=== PATIENT | female | born 1930 | race Caucasian/White ===

== ENCOUNTER 2021-03-27 05:58 | Inpatient (IN) | payer MEDICARE, SELFPAY ==
[2021-03-27 06:45] LABS: Hemoglobin 7.6 g/dL (12.0-16.0); Mean Corpuscular HGB CONC 29.6 g/dL (32.0-36.0); Mean Corpuscular Hemoglobin 25.3 pg (27.0-31.0); Mean Corpuscular Volume 85.4 fL (78.0-98.0); Mean Platelet Volume 8.1 fL (7.4-10.4); Platelet Count 356 thou/uL (130-400); Red Blood Cell (RBC) Count 3.01 mill/uL (4.20-5.40); White Blood Cell (WBC) Count 14.4 thou/uL (4.8-10.8)
[2021-03-27 07:01] LABS: ALT (SGPT) 10 U/L (8-55); AST (SGOT) 12 U/L (5-34); Albumin 3.5 g/dL (3.4-4.8); Alkaline Phosphatase 81 U/L (40-110); Anion Gap 12 mmol/L (10-20); BUN (Urea Nitrogen) 18 mg/dL (9.8-20.1); Bilirubin, Total 0.7 mg/dL (0.2-1.2); Calc. Creatinine Clearance 0 mL/min (70-130); Calcium 9.9 mg/dL (7.8-10.44); Carbon Dioxide 26 mmol/L (23-31); Chloride 102 mmol/L (98-107); Globulin 4.2 g/dL (2.4-3.5); Glucose 111 mg/dL (83-110); Potassium 3.9 mmol/L (3.5-5.1); Protein, Total 7.7 g/dL (5.8-8.1); Sodium 136 mmol/L (136-145)
[2021-03-27 07:38] LABS: #Lymphocytes 1.5 thou/uL (1.20-3.40); #Monocytes 1.4 thou/uL (0.11-0.59); #Neutrophils 11.5 thou/uL (1.40-6.50); %Basophils 0.3 % (0.0-1.0); %Eosinophils 0.3 % (0.0-10.0); %Lymphocytes 10.2 % (21.0-51.0); %Monocytes 9.3 % (0.0-10.0); %Neutrophils 79.9 % (42.0-75.0); Band 13 % (5-11); Eosinophils 1 % (0-10); Hypochromia SLIGHT = 6-15 cells (100X) (0-5/hpf); Lymphocytes 15 % (21-51); MDiff Complete? YES; Monocytes 8 % (0-10); Neutrophil 63 % (42-75); Platelet Morphology Comment Appears Adequate; Polychromasia SLIGHT = 2-3 cells (100X) (0-2/hpf)
[2021-03-27] MEDS ORDERED: cefTRIAXone\\ROCEPHIN 2 GM VIAL ONE (08:08)
[2021-03-27] MEDS ORDERED: Azithromycin 500 MG VIAL ONE (08:08)
[2021-03-27] MEDS ORDERED: Nitroglycerin 2% Ointment 1 INCH/1 GM Packet ONE (09:55)
[2021-03-27] MEDS ORDERED: Furosemide 40 MG/4 ML VIAL ONE ×2 (11:11→16:57)
[2021-03-27 11:19] LABS: Actual Bicarbonate (HCO3a) 27.8 mEq/L (22-28); Analyzer IN Cardio ER; Base Excess (BEa) -0.4 mEq/L (-2.0 to +3.0); Calcium, Ionized (arterial) 1.29 mmol/L (1.12-1.30); Carboxyhemoglobin (COHb) 1.2 gm% (0.0-3.0); O2 Tension (PaO2), arterial 86.2 mmHg (> 60.0); Potassium - ABG Lab 3.73 mmol/L (3.70-5.30)
[2021-03-27 11:21] LABS: CO2 Tension 69.6 mmHg (35.0-45.0); Puncture Site RBA; pH, Arterial 7.22 (7.35-7.45)
[2021-03-27] MEDS ORDERED: Acetaminophen 650 MG Suppository PR PRN (11:51)
[2021-03-27] MEDS ORDERED: Ondansetron PF 4 MG/2 ML Vial IVP PRN (11:51)
[2021-03-27] MEDS ORDERED: Ondansetron ODT 4 MG TAB PO PRN (11:51)
[2021-03-27] MEDS ORDERED: Labetalol HCl 100 MG/20 ML VIAL SLOW IVP PRN (12:38)
[2021-03-27 13:31] LABS: Troponin I 0.015 ng/mL (< 0.028)
[2021-03-27 13:42] LABS: Iron 15 ug/dL (50-170); Iron Binding Capacity, Total 280 mcg/dL (265-497)
[2021-03-27] MEDS ORDERED: Nitroglycerin 2% Ointment 1 INCH/1 GM Packet TOP SCH (14:00)
[2021-03-27 15:02] LABS: SARS-CoV-2 PCR by NAA Not Detected (NotDetected)
[2021-03-27 16:51] LABS: Analyzer IN Cardio ER; Base Excess (BEa) 3.6 mEq/L (-2.0 to +3.0); CO2 Tension 48.6 mmHg (35.0-45.0); Calcium, Ionized (arterial) 1.22 mmol/L (1.12-1.30); Carboxyhemoglobin (COHb) 1.2 gm% (0.0-3.0); Hemoglobin (Hb) 7.8 g/dL (12.0-16.0); O2 Tension (PaO2), arterial 119.5 mmHg (> 60.0); Potassium - ABG Lab 3.31 mmol/L (3.70-5.30); pH, Arterial 7.39 (7.35-7.45)
[2021-03-27 16:52] LABS: Puncture Site RRA
[2021-03-27] MEDS: Furosemide 40 MG/4 ML VIAL SLOW IVP SCH (16:57)
[2021-03-27 18:41] VITALS: BMI 23.5
[2021-03-27] MEDS: Apixaban 5 MG TAB PO SCH (21:04)
[2021-03-27] MEDS: Nitroglycerin 2% Ointment 1 INCH/1 GM Packet TOP SCH (21:04)
[2021-03-27] MEDS ORDERED: hydrALAZINE 20 MG/ML VIAL SLOW IVP PRN (21:45)
[2021-03-28] MEDS: Acetaminophen 325 MG TAB PO PRN ×3 (03:57→18:07)
[2021-03-28] MEDS: Furosemide 40 MG/4 ML VIAL SLOW IVP SCH ×2 (06:04→14:59)
[2021-03-28] MEDS: Nitroglycerin 2% Ointment 1 INCH/1 GM Packet TOP SCH ×2 (06:18→15:03)
[2021-03-28] MEDS: Apixaban 5 MG TAB PO SCH ×2 (08:27→19:58)
[2021-03-28 08:52] LABS: #Lymphocytes 1.5 thou/uL (1.20-3.40); #Monocytes 1.2 thou/uL (0.11-0.59); #Neutrophils 8.3 thou/uL (1.40-6.50); %Basophils 0.1 % (0.0-1.0); %Eosinophils 0.3 % (0.0-10.0); %Lymphocytes 13.6 % (21.0-51.0); %Monocytes 11.2 % (0.0-10.0); %Neutrophils 74.8 % (42.0-75.0); Hemoglobin 7.8 g/dL (12.0-16.0); Mean Corpuscular HGB CONC 29.2 g/dL (32.0-36.0); Mean Corpuscular Volume 85.7 fL (78.0-98.0); Mean Platelet Volume 8.4 fL (7.4-10.4); Platelet Count 364 thou/uL (130-400); RBC Distribution Width 18.7 % (11.5-14.5); Red Blood Cell (RBC) Count 3.13 mill/uL (4.20-5.40); White Blood Cell (WBC) Count 11.1 thou/uL (4.8-10.8)
[2021-03-28 09:06] LABS: Anion Gap 12 mmol/L (10-20); BUN (Urea Nitrogen) 16 mg/dL (9.8-20.1); Calc. Creatinine Clearance 43 mL/min (70-130); Calcium 10.1 mg/dL (7.8-10.44); Carbon Dioxide 35 mmol/L (23-31); Chloride 96 mmol/L (98-107); Glucose 130 mg/dL (83-110); Potassium 3.3 mmol/L (3.5-5.1); Sodium 140 mmol/L (136-145)
[2021-03-28 10:38] LABS: Hypochromia SLIGHT = 6-15 cells (100X) (0-5/hpf); MDiff Complete? YES; Platelet Morphology Comment Appears Adequate; Polychromasia SLIGHT = 2-3 cells (100X) (0-2/hpf)
[2021-03-28] MEDS ORDERED: Potassium Chloride 20 MEQ TAB PO SCH ×2 (18:30→20:00)
[2021-03-28] MEDS ORDERED: Electrolyte Replacement Protocol 1 EACH FS SCH (18:30)
[2021-03-28] MEDS: Cefepime 1 GM in Sodium Chloride 0.9% 100 ML IVPB SCH (19:55)
[2021-03-28] MEDS: Sotalol HCl 80 MG TAB PO SCH (19:56)
[2021-03-28] MEDS: Doxycycline 100 MG CAP PO SCH (19:56)
[2021-03-28] MEDS: guaiFENesin ER 600 MG TAB PO SCH (19:58)
[2021-03-28] MEDS: Montelukast Sodium 10 mg Tablet PO SCH (19:58)
[2021-03-28] MEDS ORDERED: Cyclobenzaprine 10 MG TAB PO SCH (22:15)
[2021-03-29 04:28] LABS: #Basophils 0.1 thou/uL (0.0-0.2); #Eosinphils 0.2 thou/uL (0.0-0.7); #Lymphocytes 1.1 thou/uL (1.20-3.40); #Monocytes 1.3 thou/uL (0.11-0.59); #Neutrophils 9.5 thou/uL (1.40-6.50); %Basophils 0.4 % (0.0-1.0); %Eosinophils 1.9 % (0.0-10.0); %Lymphocytes 9.2 % (21.0-51.0); %Monocytes 10.7 % (0.0-10.0); %Neutrophils 77.9 % (42.0-75.0); Hemoglobin 8.1 g/dL (12.0-16.0); Mean Corpuscular HGB CONC 30.2 g/dL (32.0-36.0); Mean Corpuscular Hemoglobin 26.4 pg (27.0-31.0); Mean Corpuscular Volume 87.6 fL (78.0-98.0); Mean Platelet Volume 8.6 fL (7.4-10.4); Platelet Count 323 thou/uL (130-400); RBC Distribution Width 18.5 % (11.5-14.5); Red Blood Cell (RBC) Count 3.08 mill/uL (4.20-5.40); White Blood Cell (WBC) Count 12.2 thou/uL (4.8-10.8)
[2021-03-29 04:30] LABS: Anion Gap 11 mmol/L (10-20); BUN (Urea Nitrogen) 16 mg/dL (9.8-20.1); Calc. Creatinine Clearance 47 mL/min (70-130); Calcium 9.9 mg/dL (7.8-10.44); Carbon Dioxide 33 mmol/L (23-31); Chloride 96 mmol/L (98-107); Glucose 117 mg/dL (83-110); Magnesium 1.8 mg/dL (1.6-2.6); Phosphorus 2.2 mg/dL (2.3-4.7); Potassium 3.7 mmol/L (3.5-5.1); Sodium 136 mmol/L (136-145)
[2021-03-29] MEDS: Cefepime 1 GM in Sodium Chloride 0.9% 100 ML IVPB SCH (05:57)
[2021-03-29] MEDS: Levothyroxine Sodium 100 MCG TAB PO SCH (05:58)
[2021-03-29] MEDS: Mometasone 100 MCG/PUFF (1 INHALER) INH SCH ×2 (06:53→18:48)
[2021-03-29] MEDS: Budesonide 0.5 MG/2 ML NEB NEB SCH ×2 (06:56→18:48)
[2021-03-29] MEDS ORDERED: Magnesium 2 GM/50 ML 2 GM in Premix Bag 1 BAG IVPB SCH (07:00)
[2021-03-29] MEDS: Sotalol HCl 80 MG TAB PO SCH ×2 (08:21→20:59)
[2021-03-29] MEDS: Potassium Chloride 10 MEQ TAB PO SCH ×2 (08:21→16:04)
[2021-03-29] MEDS: Apixaban 5 MG TAB PO SCH ×2 (08:21→20:58)
[2021-03-29] MEDS: Atorvastatin Calcium 40 MG TAB PO SCH (08:21)
[2021-03-29] MEDS: Saccharomyces boulardii 250 MG CAP PO SCH (08:21)
[2021-03-29] MEDS: Doxycycline 100 MG CAP PO SCH ×2 (08:21→20:58)
[2021-03-29] MEDS: guaiFENesin ER 600 MG TAB PO SCH ×2 (08:22→20:58)
[2021-03-29] MEDS: Furosemide 40 MG TAB PO SCH (08:42)
[2021-03-29] MEDS ORDERED: Non-Formulary Item 1 EACH (Fluticasone/Umeclidin/Vilanter [Trelegy Ellipta 100-62.5-25] 1 IH SCH (09:00)
[2021-03-29] MEDS ORDERED: Furosemide 40 MG/4 ML VIAL SLOW IVP SCH (09:00)
[2021-03-29] MEDS ORDERED: Potassium Phosphate 15 MMOL in Sodium Chloride 0.9% 250 ML 250 ML IVPB SCH (09:00)
[2021-03-29] MEDS: Acetaminophen 325 MG TAB PO PRN (17:06)
[2021-03-29] MEDS: Cefepime 2 GM in Sodium Chloride 0.9% 100 ML IVPB SCH (18:27)
[2021-03-29] MEDS: Montelukast Sodium 10 mg Tablet PO SCH (20:58)
[2021-03-30 05:05] LABS: #Eosinphils 0.4 thou/uL (0.0-0.7); #Lymphocytes 1.4 thou/uL (1.20-3.40); #Monocytes 1.1 thou/uL (0.11-0.59); #Neutrophils 7.1 thou/uL (1.40-6.50); %Basophils 0.1 % (0.0-1.0); %Eosinophils 3.7 % (0.0-10.0); %Lymphocytes 13.6 % (21.0-51.0); %Monocytes 11.2 % (0.0-10.0); %Neutrophils 71.5 % (42.0-75.0); Hemoglobin 6.9 g/dL (12.0-16.0); Mean Corpuscular HGB CONC 28.9 g/dL (32.0-36.0); Mean Corpuscular Hemoglobin 25.2 pg (27.0-31.0); Mean Corpuscular Volume 87.1 fL (78.0-98.0); Platelet Count 347 thou/uL (130-400); RBC Distribution Width 18.4 % (11.5-14.5); Red Blood Cell (RBC) Count 2.75 mill/uL (4.20-5.40); White Blood Cell (WBC) Count 9.9 thou/uL (4.8-10.8)
[2021-03-30 05:15] LABS: Anion Gap 10 mmol/L (10-20); BUN (Urea Nitrogen) 14 mg/dL (9.8-20.1); Calc. Creatinine Clearance 49 mL/min (70-130); Calcium 9.9 mg/dL (7.8-10.44); Carbon Dioxide 32 mmol/L (23-31); Chloride 100 mmol/L (98-107); Glucose 100 mg/dL (83-110); Magnesium 2.3 mg/dL (1.6-2.6); Potassium 3.8 mmol/L (3.5-5.1); Sodium 138 mmol/L (136-145)
[2021-03-30] MEDS: Levothyroxine Sodium 100 MCG TAB PO SCH (06:26)
[2021-03-30] MEDS: Cefepime 2 GM in Sodium Chloride 0.9% 100 ML IVPB SCH ×2 (06:26→18:11)
[2021-03-30] MEDS: Budesonide 0.5 MG/2 ML NEB NEB SCH ×2 (07:41→18:47)
[2021-03-30] MEDS: Mometasone 100 MCG/PUFF (1 INHALER) INH SCH ×2 (07:41→18:47)
[2021-03-30] MEDS: Acetaminophen 325 MG TAB PO PRN ×3 (07:52→21:54)
[2021-03-30] MEDS: Doxycycline 100 MG CAP PO SCH ×2 (08:02→21:55)
[2021-03-30] MEDS: Apixaban 5 MG TAB PO SCH ×2 (08:02→21:55)
[2021-03-30] MEDS: Potassium Chloride 10 MEQ TAB PO SCH ×2 (08:02→18:10)
[2021-03-30] MEDS: Sotalol HCl 80 MG TAB PO SCH ×2 (08:03→21:56)
[2021-03-30] MEDS: Furosemide 40 MG TAB PO SCH (08:03)
[2021-03-30] MEDS: Saccharomyces boulardii 250 MG CAP PO SCH (08:03)
[2021-03-30] MEDS: guaiFENesin ER 600 MG TAB PO SCH ×2 (08:03→21:55)
[2021-03-30] MEDS: Atorvastatin Calcium 40 MG TAB PO SCH (08:03)
[2021-03-30] MEDS: Diazepam 5 MG TAB PO PRN (08:03)
[2021-03-30] MEDS: Montelukast Sodium 10 mg Tablet PO SCH (21:56)
[2021-03-31] MEDS: Diazepam 5 MG TAB PO PRN ×2 (01:03→22:45)
[2021-03-31 05:10] LABS: #Eosinphils 0.3 thou/uL (0.0-0.7); #Lymphocytes 1.9 thou/uL (1.20-3.40); %Basophils 0.3 % (0.0-1.0); %Eosinophils 2.8 % (0.0-10.0); %Lymphocytes 18.7 % (21.0-51.0); %Neutrophils 68.1 % (42.0-75.0); Mean Corpuscular HGB CONC 30.9 g/dL (32.0-36.0); Mean Corpuscular Hemoglobin 26.6 pg (27.0-31.0); Mean Corpuscular Volume 86.2 fL (78.0-98.0); Mean Platelet Volume 8.2 fL (7.4-10.4); Platelet Count 344 thou/uL (130-400); RBC Distribution Width 17.2 % (11.5-14.5); Red Blood Cell (RBC) Count 3.37 mill/uL (4.20-5.40); White Blood Cell (WBC) Count 10.2 thou/uL (4.8-10.8)
[2021-03-31 05:31] LABS: Anion Gap 10 mmol/L (10-20); BUN (Urea Nitrogen) 13 mg/dL (9.8-20.1); Calc. Creatinine Clearance 51 mL/min (70-130); Carbon Dioxide 29 mmol/L (23-31); Chloride 101 mmol/L (98-107); Glucose 87 mg/dL (83-110); Potassium 4.1 mmol/L (3.5-5.1); Sodium 136 mmol/L (136-145)
[2021-03-31] MEDS: Acetaminophen 325 MG TAB PO PRN ×3 (05:50→13:57)
[2021-03-31] MEDS: Levothyroxine Sodium 100 MCG TAB PO SCH (05:50)
[2021-03-31] MEDS: Cefepime 2 GM in Sodium Chloride 0.9% 100 ML IVPB SCH ×2 (06:02→17:35)
[2021-03-31] MEDS: Budesonide 0.5 MG/2 ML NEB NEB SCH ×2 (07:33→18:19)
[2021-03-31] MEDS: Mometasone 100 MCG/PUFF (1 INHALER) INH SCH ×2 (07:34→18:42)
[2021-03-31] MEDS: Furosemide 40 MG TAB PO SCH (09:17)
[2021-03-31] MEDS: Doxycycline 100 MG CAP PO SCH ×2 (09:17→22:43)
[2021-03-31] MEDS: Potassium Chloride 10 MEQ TAB PO SCH ×2 (09:17→17:34)
[2021-03-31] MEDS: Sotalol HCl 80 MG TAB PO SCH ×2 (09:17→22:44)
[2021-03-31] MEDS: Apixaban 5 MG TAB PO SCH ×2 (09:17→22:43)
[2021-03-31] MEDS: Atorvastatin Calcium 40 MG TAB PO SCH (09:20)
[2021-03-31] MEDS: Saccharomyces boulardii 250 MG CAP PO SCH (09:20)
[2021-03-31] MEDS: guaiFENesin ER 600 MG TAB PO SCH ×2 (09:20→22:43)
[2021-03-31] MEDS: NIFEdipine XL 30 MG TAB PO SCH ×2 (09:28→22:44)
[2021-03-31 17:07] LABS: Bacteria/HPF 1+ HPF (None Seen); Bilirubin Negative (Negative); Blood, Urine Negative (Negative); Clarity Clear (Clear); Glucose, Urine (Dipstick) Normal (Negative); Ketone, Urine Trace mg/dL (Negative); Leukocyte Negative Leu/uL (Negative); Nitrite Negative (Negative); Protein, Urine (Dipstick) Negative (Neg-Trace); RBC/HPF 0-3 HPF (0-3); Specific Gravity, Urine 1.019 (1.002-1.036); Squamous Epithelial 0-3 HPF (0-3); Urobilinogen Normal mg/dL (Less than 2); WBC/HPF 0-3 HPF (0-3); pH, Urine 5.5 (5.0-9.0)
[2021-03-31 17:09] LABS: Urine Culture Reflex Yes Yes
[2021-03-31] MEDS: Montelukast Sodium 10 mg Tablet PO SCH (22:44)
[2021-04-01 05:13] LABS: #Eosinphils 0.2 thou/uL (0.0-0.7); #Lymphocytes 1.5 thou/uL (1.20-3.40); #Monocytes 0.9 thou/uL (0.11-0.59); #Neutrophils 9.4 thou/uL (1.40-6.50); %Eosinophils 1.6 % (0.0-10.0); %Lymphocytes 12.2 % (21.0-51.0); %Monocytes 7.6 % (0.0-10.0); %Neutrophils 78.6 % (42.0-75.0); Hemoglobin 8.7 g/dL (12.0-16.0); Mean Corpuscular HGB CONC 29.7 g/dL (32.0-36.0); Mean Corpuscular Hemoglobin 25.5 pg (27.0-31.0); Mean Corpuscular Volume 85.7 fL (78.0-98.0); Mean Platelet Volume 7.9 fL (7.4-10.4); Platelet Count 419 thou/uL (130-400); RBC Distribution Width 17.4 % (11.5-14.5); Red Blood Cell (RBC) Count 3.41 mill/uL (4.20-5.40)
[2021-04-01 05:28] LABS: Legionella Urinary Ag Negative (Negative); Strep pneumo Urine Ag NEGATIVE (NEGATIVE)
[2021-04-01 05:32] LABS: Anion Gap 10 mmol/L (10-20); BUN (Urea Nitrogen) 14 mg/dL (9.8-20.1); Calc. Creatinine Clearance 48 mL/min (70-130); Calcium 10.3 mg/dL (7.8-10.44); Carbon Dioxide 33 mmol/L (23-31); Chloride 99 mmol/L (98-107); Glucose 107 mg/dL (83-110); Potassium 3.8 mmol/L (3.5-5.1); Sodium 138 mmol/L (136-145)
[2021-04-01] MEDS: Levothyroxine Sodium 100 MCG TAB PO SCH (05:46)
[2021-04-01] MEDS: Cefepime 2 GM in Sodium Chloride 0.9% 100 ML IVPB SCH ×2 (05:46→17:55)
[2021-04-01] MEDS: Budesonide 0.5 MG/2 ML NEB NEB SCH ×2 (07:52→20:32)
[2021-04-01] MEDS: Mometasone 100 MCG/PUFF (1 INHALER) INH SCH ×2 (07:54→20:33)
[2021-04-01] MEDS: NIFEdipine XL 30 MG TAB PO SCH ×2 (08:04→22:02)
[2021-04-01] MEDS: Doxycycline 100 MG CAP PO SCH ×2 (08:04→22:01)
[2021-04-01] MEDS: Atorvastatin Calcium 40 MG TAB PO SCH (08:06)
[2021-04-01] MEDS: guaiFENesin ER 600 MG TAB PO SCH ×2 (08:06→22:04)
[2021-04-01] MEDS: Apixaban 5 MG TAB PO SCH ×2 (08:06→22:04)
[2021-04-01] MEDS: Saccharomyces boulardii 250 MG CAP PO SCH (08:06)
[2021-04-01] MEDS: Potassium Chloride 10 MEQ TAB PO SCH ×2 (08:06→15:48)
[2021-04-01] MEDS: Sotalol HCl 80 MG TAB PO SCH ×2 (08:07→22:02)
[2021-04-01] MEDS: Furosemide 40 MG TAB PO SCH (08:07)
[2021-04-01] MEDS: Acetaminophen 325 MG TAB PO PRN ×2 (11:43→18:30)
[2021-04-01] MEDS ORDERED: Sodium Chloride 0.9% 10 ML ONE (21:47)
[2021-04-01] MEDS: Montelukast Sodium 10 mg Tablet PO SCH (22:01)
[2021-04-02 05:13] LABS: #Eosinphils 0.3 thou/uL (0.0-0.7); #Lymphocytes 1.6 thou/uL (1.20-3.40); #Monocytes 0.8 thou/uL (0.11-0.59); #Neutrophils 5.6 thou/uL (1.40-6.50); %Basophils 0.2 % (0.0-1.0); %Eosinophils 3.2 % (0.0-10.0); %Lymphocytes 19.8 % (21.0-51.0); %Monocytes 9.3 % (0.0-10.0); %Neutrophils 67.6 % (42.0-75.0); Mean Corpuscular HGB CONC 30.5 g/dL (32.0-36.0); Mean Corpuscular Volume 85.4 fL (78.0-98.0); Mean Platelet Volume 7.9 fL (7.4-10.4); Platelet Count 389 thou/uL (130-400); RBC Distribution Width 17.3 % (11.5-14.5); Red Blood Cell (RBC) Count 3.45 mill/uL (4.20-5.40); White Blood Cell (WBC) Count 8.3 thou/uL (4.8-10.8)
[2021-04-02 05:39] LABS: Anion Gap 11 mmol/L (10-20); BUN (Urea Nitrogen) 13 mg/dL (9.8-20.1); Calc. Creatinine Clearance 47 mL/min (70-130); Calcium 10.2 mg/dL (7.8-10.44); Carbon Dioxide 31 mmol/L (23-31); Chloride 97 mmol/L (98-107); Glucose 86 mg/dL (83-110); Potassium 3.4 mmol/L (3.5-5.1); Sodium 136 mmol/L (136-145)
[2021-04-02] MEDS: Levothyroxine Sodium 100 MCG TAB PO SCH (05:53)
[2021-04-02] MEDS: Cefepime 2 GM in Sodium Chloride 0.9% 100 ML IVPB SCH ×2 (05:54→17:17)
[2021-04-02] MEDS ORDERED: Potassium Chloride 20 MEQ TAB PO SCH (07:00)
[2021-04-02] MEDS: Budesonide 0.5 MG/2 ML NEB NEB SCH (07:47)
[2021-04-02] MEDS: Mometasone 100 MCG/PUFF (1 INHALER) INH SCH (07:49)
[2021-04-02] MEDS: Sotalol HCl 80 MG TAB PO SCH ×2 (09:41→21:53)
[2021-04-02] MEDS: Apixaban 5 MG TAB PO SCH ×2 (09:41→21:53)
[2021-04-02] MEDS: Doxycycline 100 MG CAP PO SCH ×2 (09:41→21:53)
[2021-04-02] MEDS: Tamsulosin HCl 0.4 MG CAP PO SCH (09:42)
[2021-04-02] MEDS: Potassium Chloride 10 MEQ TAB PO SCH ×2 (09:42→17:17)
[2021-04-02] MEDS: Saccharomyces boulardii 250 MG CAP PO SCH (09:42)
[2021-04-02] MEDS: guaiFENesin ER 600 MG TAB PO SCH ×2 (09:43→21:54)
[2021-04-02] MEDS: Atorvastatin Calcium 40 MG TAB PO SCH (09:43)
[2021-04-02] MEDS: Furosemide 40 MG TAB PO SCH (09:43)
[2021-04-02] MEDS: NIFEdipine XL 30 MG TAB PO SCH ×2 (09:43→21:53)
[2021-04-02 11:35] LABS: Potassium 4.7 mmol/L (3.5-5.1)
[2021-04-02] MEDS: Nystatin 500,000 UNITS/5 ML UDCUP SSW SCH ×2 (17:17→21:55)
[2021-04-02] MEDS: Montelukast Sodium 10 mg Tablet PO SCH (21:53)
[2021-04-02] MEDS: Diazepam 5 MG TAB PO PRN (23:16)
[2021-04-03] MEDS: Mometasone 200 MCG/Formoterol 5 MCG 120 PUFF INHALER INH SCH ×3 (00:38→19:53)
[2021-04-03] MEDS: Cefepime 2 GM in Sodium Chloride 0.9% 100 ML IVPB SCH ×2 (06:17→17:45)
[2021-04-03] MEDS: Levothyroxine Sodium 100 MCG TAB PO SCH (06:17)
[2021-04-03 06:20] LABS: #Eosinphils 0.2 thou/uL (0.0-0.7); #Lymphocytes 1.4 thou/uL (1.20-3.40); #Monocytes 0.9 thou/uL (0.11-0.59); #Neutrophils 6.5 thou/uL (1.40-6.50); %Eosinophils 2.6 % (0.0-10.0); %Neutrophils 72.5 % (42.0-75.0); Anion Gap 10 mmol/L (10-20); BUN (Urea Nitrogen) 15 mg/dL (9.8-20.1); Calc. Creatinine Clearance 45 mL/min (70-130); Calcium 10.2 mg/dL (7.8-10.44); Carbon Dioxide 30 mmol/L (23-31); Chloride 97 mmol/L (98-107); Glucose 106 mg/dL (83-110); Hemoglobin 9.2 g/dL (12.0-16.0); Mean Corpuscular HGB CONC 30.5 g/dL (32.0-36.0); Mean Corpuscular Hemoglobin 25.6 pg (27.0-31.0); Mean Platelet Volume 7.9 fL (7.4-10.4); Platelet Count 398 thou/uL (130-400); Potassium 3.8 mmol/L (3.5-5.1); RBC Distribution Width 17.5 % (11.5-14.5); Red Blood Cell (RBC) Count 3.59 mill/uL (4.20-5.40); Sodium 133 mmol/L (136-145)
[2021-04-03] MEDS: Nystatin 500,000 UNITS/5 ML UDCUP SSW SCH ×4 (10:37→21:30)
[2021-04-03] MEDS: NIFEdipine XL 30 MG TAB PO SCH ×2 (10:37→21:30)
[2021-04-03] MEDS: Sotalol HCl 80 MG TAB PO SCH ×2 (10:37→21:30)
[2021-04-03] MEDS: Saccharomyces boulardii 250 MG CAP PO SCH (10:38)
[2021-04-03] MEDS: Atorvastatin Calcium 40 MG TAB PO SCH (10:38)
[2021-04-03] MEDS: Potassium Chloride 10 MEQ TAB PO SCH ×2 (10:38→17:44)
[2021-04-03] MEDS: Apixaban 5 MG TAB PO SCH ×2 (10:39→21:29)
[2021-04-03] MEDS: Furosemide 40 MG TAB PO SCH (10:39)
[2021-04-03] MEDS: guaiFENesin ER 600 MG TAB PO SCH ×2 (10:39→21:29)
[2021-04-03] MEDS: Tamsulosin HCl 0.4 MG CAP PO SCH (10:39)
[2021-04-03] MEDS: Doxycycline 100 MG CAP PO SCH ×2 (10:40→21:29)
[2021-04-03] MEDS: Acetaminophen 325 MG TAB PO PRN (15:21)
[2021-04-03] MEDS: Polyethylene Glycol 3350 17 GM Packet PO PRN (17:44)
[2021-04-03] MEDS: Montelukast Sodium 10 mg Tablet PO SCH (21:29)
[2021-04-03] MEDS: Diazepam 5 MG TAB PO PRN (21:33)
[2021-04-04] MEDS: Cefepime 2 GM in Sodium Chloride 0.9% 100 ML IVPB SCH (06:25)
[2021-04-04] MEDS: Levothyroxine Sodium 100 MCG TAB PO SCH (06:31)
[2021-04-04] MEDS: Mometasone 200 MCG/Formoterol 5 MCG 120 PUFF INHALER INH SCH (07:27)
[2021-04-04] MEDS: Sotalol HCl 80 MG TAB PO SCH (10:46)
[2021-04-04] MEDS: Furosemide 40 MG TAB PO SCH (10:46)
[2021-04-04] MEDS: Polyethylene Glycol 3350 17 GM Packet PO PRN (10:46)
[2021-04-04] MEDS: Doxycycline 100 MG CAP PO SCH (10:48)
[2021-04-04] MEDS: Potassium Chloride 10 MEQ TAB PO SCH (10:48)
[2021-04-04] MEDS: Tamsulosin HCl 0.4 MG CAP PO SCH (10:48)
[2021-04-04] MEDS: Apixaban 5 MG TAB PO SCH (10:49)
[2021-04-04] MEDS: Atorvastatin Calcium 40 MG TAB PO SCH (10:49)
[2021-04-04] MEDS: guaiFENesin ER 600 MG TAB PO SCH (10:49)
[2021-04-04] MEDS: Saccharomyces boulardii 250 MG CAP PO SCH (10:49)
[2021-04-04] MEDS: NIFEdipine XL 30 MG TAB PO SCH (10:49)
[2021-04-04] MEDS: Nystatin 500,000 UNITS/5 ML UDCUP SSW SCH ×2 (10:50→13:30)
[2021-04-04 11:04] VITALS: BP 143/62; TEMP 97.8
[2021-04-04] MEDS ORDERED: Iron, Sodium Ferric Gluconate 250 MG in Sodium Chloride 0.9% 250 ML 250 ML IVPB SCH (12:30)
== END 2021-04-04 15:31 | disposition home or self-care (01) | DRG 871 ==
LOC: ERS 05:58 → ERHOLD 09:20 → IMCU/EMU 18:11 → 2NO 03-29 10:55
PROVIDERS: ADMIT Internal Medicine; ATTEND Internal Medicine
PROC: 5A09357 Assistance with Respiratory Ventilation, Less than 24 Consecutive Hours, Continuous Positive Airway Pressure (ICD-10-PCS; principal; 2021-03-27)
PROC: 0T9B70Z Drainage of Bladder with Drainage Device, Via Natural or Artificial Opening (ICD-10-PCS; 2021-04-01)
DX: A41.9 Sepsis, unspecified organism (principal); J96.01 Acute respiratory failure with hypoxia; J18.9 Pneumonia, unspecified organism; J96.02 Acute respiratory failure with hypercapnia; I50.33 Acute on chronic diastolic (congestive) heart failure; J44.0 Chronic obstructive pulmonary disease with (acute) lower respiratory infection; I48.20 Chronic atrial fibrillation, unspecified; J44.1 Chronic obstructive pulmonary disease with (acute) exacerbation; B37.0 Candidal stomatitis; Z20.822 Contact with and (suspected) exposure to COVID-19; R65.20 Severe sepsis without septic shock; E78.5 Hyperlipidemia, unspecified; D50.9 Iron deficiency anemia, unspecified; E03.9 Hypothyroidism, unspecified; I11.0 Hypertensive heart disease with heart failure; F41.9 Anxiety disorder, unspecified; E87.6 Hypokalemia; E83.39 Other disorders of phosphorus metabolism; E83.42 Hypomagnesemia; R33.9 Retention of urine, unspecified; Z87.891 Personal history of nicotine dependence; Z95.0 Presence of cardiac pacemaker; Z88.0 Allergy status to penicillin; Z88.2 Allergy status to sulfonamides; Z79.01 Long term (current) use of anticoagulants; Z79.890 Hormone replacement therapy; Z79.899 Other long term (current) drug therapy; Z99.81 Dependence on supplemental oxygen
CPT/HCPCS: 36415; 36430; 36600; 71045; 71275; 80048; 80053; 81001; 82607; 82728; 82746; 82805; 83540; 83550; 83605; 83735; 83880; 84100; 84145; 84484; 85025; 85379; 86850; 86900; 86901; 87040; 87086; 87449; 87899; 93005; 93306; 94640; 94660; 96365; 96366; 96367; 96375; J0456; J0692; J0696; J1940; J2916; J3475; J3490; J7050; J7620; J7626; P9016; U0003; U0005